=== PATIENT | female | born 1975 | race Two or more races ===

== ENCOUNTER 2024-10-12 06:04 | Emergency (ER) | payer OTHER ==
[~2024-10-12] VITALS: Ht 160 cm; Wt 77.1 kg
[2024-10-12] MEDS ORDERED: EFFEXOR XR75 MG PO (06:29)
[2024-10-12] MEDS ORDERED: PANTOPRAZOLE SODIUM 40 MG in 0.9 % SODIUM CHLORIDE 8 ML IV PUSH STA (06:30)
[2024-10-12] MEDS ORDERED: KETOROLAC TROMETHAMINE 30 MG VIAL IV ONE (06:30)
[2024-10-12] MEDS ORDERED: ONDANSETRON HCL 2 MG/ML VIAL IV ONE (06:45)
[2024-10-12] MEDS ORDERED: 0.9 % SODIUM CHLORIDE 1,000 ML IV SCH (06:45)
[2024-10-12] MEDS ORDERED: MORPHINE SULFATE 4 MG/ML VIAL IV ONE (07:30)
[2024-10-12 07:45] LABS: BASO % 0.5 % (0.1-1.2); EOS # 0.04 (0.04-0.54); EOS % 0.3 % (0.7-7.0); LYMPH # 1.65 (1.18-3.74); LYMPH % 13.9 % (19.3-53.1); MEAN PLATELET VOLUME 10.90 fl (9.4-12.4); MONO # 0.56 (0.24-0.82); MONO % 4.7 % (4.7-12.5); NEUT # 9.55 (1.56-6.13); NEUT % 80.2 % (34.0-71.1); RED CELL DISTRIBUTION WIDTH 13.9 % (11.6-14.4)
[2024-10-12 08:11] LABS: ALT/SGPT 32 U/L (12-78); AST/SGOT 24 U/L (15-37); BILIRUBIN TOTAL 0.43 mg/dL (0.3-1.2); BUN CREA RATIO 9 (7.0-25.0); CREATININE SERUM 0.85 mg/dL (0.55-1.02); GFR 71.08; GLOBULINA 4.0 G/DL (2.4-3.5); GLUCOSE FASTING 158 mg/dL (65-100); OSMOLALITY SERUM 279 MOSM/KG (275-295)
[2024-10-12 08:42] LABS: BILIRUBIN,CONJUGATED < 0.05 mg/dL (0.0-0.2)
[2024-10-12 08:48] LABS: INR < 0.93
[2024-10-12 09:08] LABS: URINE APPEARANCE Clear; URINE BILIRRUBIN Negative (NEGATIVE); URINE BLOOD Negative; URINE COLOR Yellow; URINE KETONE 15 (NEGATIVE); URINE LEUKOCYTE Negative; URINE NITRATE Negative; URINE PROTEIN Negative (NEGATIVE); URINE UROBILINOGEN 0.2 E.U./dl
[2024-10-12 09:12] LABS: URINE BACTERIA 509.9 uL (0.0-1933); URINE EPITHELIAL CELLS 11.9 uL (0.0-38.8); URINE RBC 5.2 uL (0.0-20.8); URINE WBC 9.8 uL (0.0-23.2)
[2024-10-12 09:18] LABS: URINE CAST 0.00 uL (0.0-1.40); URINE GLUCOSE 100 MG/DL (NEGATIVE)
== END 2024-10-12 10:56 | disposition home or self-care (01) ==
LOC: ER 06:04
PROVIDERS: General Practice
DX: K80.20 Calculus of gallbladder without cholecystitis without obstruction (principal); R10.11 Right upper quadrant pain

== ENCOUNTER 2024-10-14 09:04 | Outpatient (CLI) | payer OTHER ==
[~2024-10-14 09:04] MED LIST: EFFEXOR XR75 MG PO
== END 2024-10-15 08:10 | disposition home or self-care (01) ==
LOC: MRI 09:04
PROVIDERS: ATTEND Surgery
DX: K80.50 Calculus of bile duct without cholangitis or cholecystitis without obstruction (principal)
CPT/HCPCS: 74181

== ENCOUNTER 2024-10-14 09:42 | Outpatient (CLI) | payer OTHER ==
[2024-10-14 11:50] LABS: URINE APPEARANCE Clear; URINE BILIRRUBIN Negative (NEGATIVE); URINE BLOOD Negative; URINE COLOR Yellow; URINE GLUCOSE Negative (NEGATIVE); URINE KETONE 15 (NEGATIVE); URINE LEUKOCYTE Trace; URINE NITRATE Negative; URINE PROTEIN Negative (NEGATIVE); URINE UROBILINOGEN 0.2 E.U./dl
[2024-10-14 11:53] LABS: BASO % 0.7 % (0.1-1.2); EOS # 0.20 (0.04-0.54); EOS % 2.0 % (0.7-7.0); LYMPH # 2.46 (1.18-3.74); LYMPH % 24.3 % (19.3-53.1); MEAN PLATELET VOLUME 11.30 fl (9.4-12.4); MONO # 0.71 (0.24-0.82); MONO % 7.0 % (4.7-12.5); NEUT # 6.66 (1.56-6.13); NEUT % 65.6 % (34.0-71.1); RED CELL DISTRIBUTION WIDTH 14.1 % (11.6-14.4)
[2024-10-14 11:54] LABS: URINE BACTERIA 820.7 uL (0.0-1933); URINE EPITHELIAL CELLS 41.6 uL (0.0-38.8); URINE RBC 7.7 uL (0.0-20.8); URINE WBC 16.6 uL (0.0-23.2)
[2024-10-14 12:17] LABS: INR 0.99
[2024-10-14 12:18] LABS: URINE CAST 0.14 uL (0.0-1.40)
[2024-10-14 12:21] LABS: ALT/SGPT 34 U/L (12-78); AST/SGOT 15 U/L (15-37); BILIRUBIN TOTAL 0.52 mg/dL (0.3-1.2); BILIRUBIN,CONJUGATED < 0.10 mg/dL (0.0-0.2); BUN CREA RATIO 14 (7.0-25.0); CREATININE SERUM 0.92 mg/dL (0.55-1.02); GFR 64.88; GLUCOSE FASTING 85 mg/dL (65-100); OSMOLALITY SERUM 286 MOSM/KG (275-295)
== END 2024-10-14 09:53 | disposition home or self-care (01) ==
LOC: LAB 09:42
PROVIDERS: ATTEND Surgery
DX: K80.50 Calculus of bile duct without cholangitis or cholecystitis without obstruction (principal)